=== PATIENT | female | born 1960 ===

== ENCOUNTER 2017-01-22 08:20 | Emergency (ER) | payer OTHER, MEDICAID ==
[2017-01-22 08:27] VITALS: BP 130/69; PULSE 79; RESP 16; TEMP 98.7; O2SAT 99
[2017-01-22 08:28] VITALS: BMI 37.6
--- NOTE | 2017-01-22 09:19 | ED PDOC ---
HPI: General Adult Time Seen by Provider: 01/22/17 09:10 Chief Complaint (Nursing): Medical Clearance History Per: Patient (states she was sent by Dr. Veronica just for CBC and BMP because there were abnormal platelet count and glucose level noted in the preop labs that were done recently. She is from [place] and is scheduled to have spine surgery here tomorrow morning. She denies any medical complaints. ) History/Exam Limitations: no limitations Past Medical History Reviewed: Historical Data, Nursing Documentation, Vital Signs Vital Signs: Last Vital Signs Temp 98.7 F 01/22/17 08:26 Pulse 79 01/22/17 08:26 Resp 16 01/22/17 08:26 BP 130/69 01/22/17 08:26 Pulse Ox 99 01/22/17 08:26 - Medical History PMH: Asthma, Diabetes, HTN Denies: Hypercholesterolemia, Hyperlipidemia, Chronic Kidney Disease - Surgical History Surgical History: Appendectomy (23 YRS AGO) Other surgeries: right ovarian cyst removal - Family History Family History: States: Unknown Family Hx - Living Arrangements Living Arrangements: With Family - Social History Ex-Smoker (has not smoked in the last 12 months): Yes Alcohol: Occasional Drugs: Denies - Allergies Allergies/Adverse Reactions: Allergies Allergy/AdvReac Type Severity Reaction Status Date / Time Penicillins AdvReac SWELLING Verified 01/22/17 08:32 Review of Systems ROS Statement: Except As Marked, All Systems Reviewed And Found Negative Physical Exam - Reviewed Nursing Documentation Reviewed: Yes Vital Signs Reviewed: Yes - Physical Exam Appears: Positive for: Well, Non-toxic, No Acute Distress Head Exam: Positive for: ATRAUMATIC, NORMAL INSPECTION, NORMOCEPHALIC Skin: Positive for: Normal Color Eye Exam: Positive for: Normal appearance, EOMI ENT: Positive for: Normal ENT Inspection Neck: Positive for: Supple Cardiovascular/Chest: Positive for: Regular Rate, Rhythm Respiratory: Negative for: Respiratory Distress Gastrointestinal/Abdominal: Negative for: Distended Back: Positive for: Normal Inspection Extremity: Positive for: Normal ROM Neurologic/Psych: Positive for: Alert, Oriented - ECG O2 Sat by Pulse Oximetry: 99 Disposition - Clinical Impression Clinical Impression: Diabetes, Hypertension - Patient ED Disposition Is Patient to be Admitted: No Doctor Will See Patient In The: Office Counseled Patient/Family Regarding: Diagnosis, Need For Followup - Disposition Disposition: Routine/Home Disposition Time: 09:21 Condition: STABLE Instructions: Diabetes Mellitus Type 2 in Adults (ED) - POA Present On Arrival: None
[2017-01-22 09:58] LABS: BASO % 0.2 % (0.0-2.0); EOS # 0.2 K/uL (0.0-0.7); EOS % 2.1 % (0.0-4.0); LYMPH # 2.2 K/uL (1.0-4.3); LYMPH % 30.6 % (20.0-40.0); MEAN CELL VOLUME 92.8 fl (81.0-99.0); MEAN CORPUSCULAR HEMOGLOBIN 31.6 pg (27.0-31.0); MEAN PLATELET VOLUME 9.7 fl (7.2-11.7); MONO # 0.7 K/uL (0.0-0.8); MONO % 9.9 % (0.0-10.0); NEUT # 4.2 K/uL (1.8-7.0); NEUT % 57.2 % (50.0-75.0); NRBC % 0.3 % (0.0-0.0); RED CELL DISTRIBUTION WIDTH 13.3 % (11.5-14.5); WHITE BLOOD COUNT 7.3 K/uL (4.8-10.8)
[2017-01-22 10:13] LABS: BLOOD UREA NITROGEN 12 mg/dl (7-17); CALCIUM 10.1 mg/dL (8.4-10.2); CARBON DIOXIDE 31 mmol/L (22-30); CHLORIDE 102 mmol/L (98-107); GFR AFRICAN-AMERICAN > 60; GLUCOSE,RANDOM 119 mg/dL (65-105); POTASSIUM 3.5 MMOL/L (3.6-5.0); SODIUM 142 mmol/l (132-148)
== END 2017-01-22 09:56 | disposition home or self-care (01) ==
LOC: H.ER 08:20
DX: E11.9 Type 2 diabetes mellitus without complications (principal); I10 Essential (primary) hypertension; J45.909 Unspecified asthma, uncomplicated; Z88.0 Allergy status to penicillin

== ENCOUNTER 2017-01-22 15:06 | Inpatient (IN) | payer MEDICAID, OTHER ==
[2017-01-22 15:07] VITALS: BMI 37.6
--- NOTE | 2017-01-22 15:35 | ED PDOC ---
HPI: General Adult Chief Complaint (Nursing): Medical Clearance History Per: Patient History/Exam Limitations: no limitations (sent back to the ER by DR. Veronica for admission for neck surgery tomorrow morning. Patient was here earlier stating she needed repeat blood test only. She states that her preop evaluation was done by her PMD in the outpatient already. Her surgery, which was scheduled for last week, had to be cancelled because of low platelets and elevated sugar. She was informed by Dr. Veronica's corporate secretary of this and was told to come to the hospital today so that her blood tests can be repeated prior to surgery tomorrow ) Past Medical History Reviewed: Historical Data, Nursing Documentation, Vital Signs Vital Signs: Last Vital Signs Temp 98.4 F 01/22/17 15:24 Pulse 78 01/22/17 15:24 Resp 20 01/22/17 15:24 BP 129/67 01/22/17 15:24 Pulse Ox 98 01/22/17 15:24 - Medical History PMH: Asthma, Diabetes, HTN Denies: Hypercholesterolemia, Hyperlipidemia, Chronic Kidney Disease - Surgical History Surgical History: Appendectomy (23 YRS AGO) - Family History Family History: States: Unknown Family Hx - Living Arrangements Living Arrangements: With Family - Allergies Allergies/Adverse Reactions: Allergies Allergy/AdvReac Type Severity Reaction Status Date / Time Penicillins AdvReac SWELLING Verified 01/22/17 08:32 Review of Systems ROS Statement: Except As Marked, All Systems Reviewed And Found Negative Constitutional: Negative for: Fever Physical Exam - Reviewed Nursing Documentation Reviewed: Yes Vital Signs Reviewed: Yes - Physical Exam Appears: Positive for: Well, Non-toxic, No Acute Distress Head Exam: Positive for: ATRAUMATIC, NORMAL INSPECTION, NORMOCEPHALIC Skin: Positive for: Normal Color, Warm, DRY Eye Exam: Positive for: EOMI, Normal appearance, PERRL ENT: Positive for: Normal ENT Inspection Neck: Positive for: Normal, Painless ROM Cardiovascular/Chest: Positive for: Regular Rate, Rhythm Respiratory: Positive for: CNT, Normal Breath Sounds Gastrointestinal/Abdominal: Positive for: Normal Exam, Bowel Sounds, Soft Back: Positive for: Normal Inspection Extremity: Positive for: Normal ROM Neurologic/Psych: Positive for: Alert, Oriented - ECG O2 Sat by Pulse Oximetry: 98 Disposition - Clinical Impression Clinical Impression: Cervical spine disease - Patient ED Disposition Is Patient to be Admitted: Yes Doctor Will See Patient In The: Hospital - Disposition Disposition: Transfer of Care Disposition Time: 15:39 Condition: STABLE - Pt Status Changed To: Hospital Disposition Of: Inpatient - Admit Certification Admit to Inpatient:: After my assessment, the patient will require hospitalization for at least two midnights. This is because of the severity of symptoms shown, intensity of services needed, and/or the medical risk in this patient being treated as an outpatient. - POA Present On Arrival: None
--- NOTE | 2017-01-22 17:42 | CP.PCM.HP ---
History of Present Illness - History of Present Illness History of Present Illness: Hospitalist Admission H&P (Patient was seen and examined at 5 PM 01/22/17 ER Bed #12) PMD: Dr. Sreekanth Garcia CODE STATUS: FULL CODE. She has a Living Will and a copy is with her Daughter Lacey Pina [phone] who is also her Health Care Proxy. 56 year old female who presents to [facility] ER as she was sent in by her Neurosurgeon Dr. Veronica for Platelet Transfusion. Dr. Veronica will be performing Anterior Cervical Dissection and Fusion on the morning of 01/23/17 and because of patient's long history of Thrombocytopenia, wanted to transfuse Platelets prior to her procedure. Currently upon FULL ROS there is NO chest pain, NO palpitations, NO SOB/Cough/ Wheezing, NO dysphagia/odynophagia, NO abdominal pain, NO n/v/d/c, NO burning/ pain with urination, NO lightheadedness/dizziness, NO headache, NO new changes in vision/eye pain/loss of vision, NO new changes in hearing/ear pain/tinnitus/ loss of hearing, NO edema, (+) Paresthesias involving the bilateral hands/ fingertips (chronic in nature secondary to the Chronic Cervical Neck Pain), (+) Chronic Low Back Pain with radiation of sharp pain to the Right Lower Anterior Leg/Foot PMHx: Asthma (last use of ProAir 01/21/17), DM 1, HTN, Thrombocytopenia (for the past 15 to 20 years; was followed by Medical Billing Clerk at [facility] and she was discharged from his service in July 2016 and asked to follow up only if platelets were significantly low), Chronic Cervical Neck Pain with Paresthesias (tingling) of B/L Hands/Fingertips, Chronic Low Back with radiation of sharp pain to the Right Lower Anterior Leg/Foot (being followed by Neurologist Dr. Juan Duffy at [facility]) PSHx: Appendectomy, Right Ovarian Cyst, Gastric Sleeve (October; performed by Dr. 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 [employer] , (+) Tobacco quit 1 year ago at which time she was smoking 1/2 pack a day for 20 years, NO alcohol, NO illicit drugs Family History: Brother and Dad (Thrombocytopenia) Present on Admission - Present on Admission Any Indicators Present on Admission: Yes History of DVT/PE: No History of Uncontrolled Diabetes: No Urinary Catheter: No Review of Systems - Review of Systems Review of Systems: Please see HPI Past Patient History - Past Medical History & Family History Past Medical History?: Yes Pertinent Family History: Please see HPI - Past Social History Smoking Status: Former Smoker - CARDIAC Hx Cardiac Disorders: Yes - PULMONARY Hx Asthma: Yes - NEUROLOGICAL Hx Neurological Disorder: Yes Other/Comment: NUMBNESS & TINGLING Both HANDS AND RIGHT SIDE LEG - HEENT Hx HEENT Problems: No - RENAL Hx Chronic Kidney Disease: No - ENDOCRINE/METABOLIC Hx Endocrine Disorders: Yes - HEMATOLOGICAL/ONCOLOGICAL Hx Blood Disorders: No - INTEGUMENTARY Hx Dermatological Problems: No - MUSCULOSKELETAL/RHEUMATOLOGICAL Hx Musculoskeletal Disorders: Yes Hx Back Pain: Yes (AND NECK PAIN) - GASTROINTESTINAL Hx Gastrointestinal Disorders: No - GENITOURINARY/GYNECOLOGICAL Hx Genitourinary Disorders: No - PSYCHIATRIC Hx Psychophysiologic Disorder: No Hx Substance Use: No - SURGICAL HISTORY Hx Appendectomy: Yes (23 YRS AGO) - ANESTHESIA Hx Anesthesia: Yes Hx Anesthesia Reactions: No Hx Malignant Hyperthermia: No Meds Allergies/Adverse Reactions: Allergies Allergy/AdvReac Type Severity Reaction Status Date / Time Penicillins AdvReac SWELLING Verified 01/22/17 08:32 Physical Exam - Constitutional Appears: Non-toxic, No Acute Distress - Head Exam Head Exam: ATRAUMATIC, NORMAL INSPECTION, NORMOCEPHALIC - Eye Exam Eye Exam: EOMI, Normal appearance, PERRL Pupil Exam: NORMAL ACCOMODATION, PERRL - ENT Exam ENT Exam: Mucous Membranes Moist, Normal Exam, Normal External Ear Exam, Normal Oropharynx - Neck Exam Neck exam: Positive for: Tenderness Additional comments: NO thyromegaly NO cervical/submandibular/supraclavicular lymphadenopathy - Respiratory Exam Respiratory Exam: Clear to Auscultation Bilateral, NORMAL BREATHING PATTERN Additional comments: NO R/R/W - Cardiovascular Exam Cardiovascular Exam: REGULAR RHYTHM, +S1, +S2 Additional comments: NO M/R/G - GI/Abdominal Exam GI & Abdominal Exam: Normal Bowel Sounds, Soft Additional comments: BSx4, Soft, Central Obesity, NO HSM, NO guarding/rebound tenderness, NT - Extremities Exam Additional comments: NON-pitting edema mild involving the lower bilateral legs Pulses are strong and equal Capillary Refill is 2 seconds There is scattered brown discoloration of the skin of the bilateral lower legs secondary chronic venous stasis (she states that she has a history of this) - Neurological Exam Neurological exam: Alert, CN II-XII Intact, Oriented x3 - Psychiatric Exam Psychiatric exam: Normal Affect, Normal Mood Results - Vital Signs Recent Vital Signs: Last Vital Signs Temp 98.4 F 01/22/17 16:41 Pulse 78 01/22/17 16:41 Resp 20 01/22/17 16:41 BP 129/67 01/22/17 16:41 Pulse Ox 98 01/22/17 15:44 Assessment & Plan (1) Cervical spine disease Assessment and Plan: Patient is for Anterior Cervical Dissections with Fusion by Neurosurgeon Dr. Veronica for morning of 01/23/17. Patient states that she had presurgical workup including blood work, EKG, and Chest X Ray through her PMD Dr. Esteban Garcia, whom she states has sent clearance to Dr. Veronica NPO after midnight tonight except for medications Status: Acute (2) Thrombocytopenia Assessment and Plan: Neurosurgeon Dr. Veronica has already ordered Platelet Transfusion Consent has been obtained for the Platelet Transfusion and form signed by myself , patient, and ER Nurse Moraima. This consent was given to Nurse Moraima. Please see PMHx for details concerning this issue. Status: Chronic (3) Hypertension Assessment and Plan: HCTZ 12.5 mg PO 1x/day (AM) with one dose at 6 PM as she did not take this morning Enalipril 20 mg PO 1x/day (PM) Status: Chronic (4) Diabetes mellitus type 1 Assessment and Plan: Humalog Lispro ISS Levemir 45 Units SQ in AM and PM (NO Lantus, which she is on at home, carried by our pharmacy) Accuchecks Status: Chronic (5) Asthma Assessment and Plan: Duoneb Q6H PRN SOB/Wheezing (She uses ProAir at home) Status: Chronic (6) Chronic pain Assessment and Plan: Nortriptyline 75 mg PO 1x/day (AM) and Cymbalta 60 mg PO 1x/day (AM) for the Chronic LBP with radiation to the Right Lower Leg Hold the Naprosyn PO 2x/day for which she is on for the Chronic Cervical Neck Pain Please see PHMx above for details concerning this issue Status: Chronic (7) Prophylactic measure Assessment and Plan: Liquid Diet for now and NPO after midnight NO anticoagulation considering the Thrombocytopenia therefore B/L SCDs for DVT Prophylaxis NO PPI and NO H2 blockers considering the Thrombocytopenia for GI Prophylaxis Status: Acute
[2017-01-22] MEDS ORDERED: Albuterol-Ipratrop 3 mg / 0.5 (3 ml) UD INH PRN (17:48)
[2017-01-22] MEDS ORDERED: Naproxen 500 MG TAB PO PRN (20:42)
[2017-01-22] MEDS: Insulin Detemir 100 Units/ml Inj SC SCH (22:06)
[2017-01-22] MEDS: Insulin Lispro (humaLOG) 100 Units/ml Inj SC SCH (22:13)
[2017-01-23] MEDS ORDERED: Propofol 10 mg/ml Inj (20 ML) ONE (07:04)
[2017-01-23] MEDS ORDERED: Succinylcholine 200 mg/10 ml Inj IV ONE (07:07)
[2017-01-23] MEDS ORDERED: Thrombin Topical 5,000 IU Spray Kit ONE (07:35)
[2017-01-23] MEDS ORDERED: Absorbable Gelatin Sponge Size 12-7 ONE (07:35)
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
[2017-01-23] MEDS: Insulin Lispro (humaLOG) 100 Units/ml Inj SC SCH ×4 (08:37→21:58)
[2017-01-23] MEDS ORDERED: Lactated Ringer's 1,000 ML IV ONE (08:45)
[2017-01-23] MEDS ORDERED: Rocuronium 10 mg/ml (5 ml) ONE (08:52)
[2017-01-23] MEDS ORDERED: Naproxen 500 MG TAB PO SCH (09:00)
--- NOTE | 2017-01-23 09:32 | CP.PCM.PN ---
Subjective - Date & Time of Evaluation Date of Evaluation: 01/23/17 Time of Evaluation: 11:00 - Subjective Subjective: Patient seen and evaluated . No acute issues overnight. Hemodynamically stable, afebrile. For ACDF today and NPO . Received 1 unit plt before surgery today. No signs of bleeding. Objective - Vital Signs/Intake and Output Vital Signs (last 24 hours): Temp Pulse Resp BP Pulse Ox 97.9 F 77 20 139/74 95 01/23/17 08:25 01/23/17 08:25 01/23/17 08:25 01/23/17 08:25 01/23/17 08:25 - Medications Medications: Current Medications Acetaminophen (Tylenol 325mg Tab) 650 mg PO Q6 PRN PRN Reason: Pain, Mild (1-3) Albuterol/Ipratropium (Duoneb 3 Mg/0.5 Mg (3 Ml) Ud) 3 ml INH RQ6 PRN PRN Reason: Shortness of Breath Duloxetine HCl (Cymbalta) 60 mg PO DAILY [facility] Last Admin: 01/23/17 08:37 Dose: Not Given Enalapril Maleate (Vasotec) 20 mg PO DAILY [facility] Hydrochlorothiazide (Microzide) 12.5 mg PO DAILY [facility] Last Admin: 01/22/17 22:18 Dose: 12.5 mg Insulin Detemir (Levemir) 45 units SC HS [facility] Last Admin: 01/22/17 22:06 Dose: 45 units Insulin Detemir (Levemir) 45 units SC DAILY [facility] Insulin Human Lispro (Humalog) 0 units SC [facility] Last Admin: 01/23/17 08:37 Dose: Not Given Naproxen (Naproxen) 500 mg PO BID PRN PRN Reason: Pain, moderate (4-7) Last Admin: 01/22/17 22:05 Dose: 500 mg Nortriptyline HCl (Pamelor) 75 mg PO DAILY [facility] - Constitutional Appears: Non-toxic, No Acute Distress - Head Exam Head Exam: ATRAUMATIC, NORMAL INSPECTION, NORMOCEPHALIC - Eye Exam Eye Exam: EOMI, Normal appearance, PERRL Pupil Exam: NORMAL ACCOMODATION, PERRL - ENT Exam ENT Exam: Mucous Membranes Moist, Normal Exam - Neck Exam Neck Exam: Normal Inspection - Respiratory Exam Respiratory Exam: Clear to Ausculation Bilateral, NORMAL BREATHING PATTERN. absent: Rales, Rhonchi, Wheezes - Cardiovascular Exam Cardiovascular Exam: REGULAR RHYTHM, RRR, +S1, +S2. absent: JVD - GI/Abdominal Exam GI & Abdominal Exam: Soft, Normal Bowel Sounds. absent: Distended, Guarding, Tenderness, Rebound - Rectal Exam Rectal Exam: Deferred - Extremities Exam Extremities Exam: Full ROM, Normal Capillary Refill, Normal Inspection. absent : Calf Tenderness, Pedal Edema - Neurological Exam Neurological Exam: Alert, Awake, CN II-XII Intact, Oriented x3 - Psychiatric Exam Psychiatric exam: Normal Affect, Normal Mood - Skin Skin Exam: Dry, Intact, Normal Color, Warm Assessment and Plan - Assessment and Plan (Free Text) Assessment: 56 y/o female with past medical history of obesity, diabetes mellitus type 1, asthma, hypertension, thrombocytopenia secondary to idiopathic thrombocytopenic purpura was admitted for Cervical disease and underwent anterior C4-C5 discectomy by Dr. Veronica today. Patient transferred to ICU for close monitoring Post op due to her thrombocytopenia and risk of bleeding. She was transfused 1 unit platelet preop and currently being transfused 1 more unit post op. 1. Cervical spine disease s/p anterior C4-C5 discectomy with fusion Monitor in ICU post op Receivecd 1 unit platelet preop and will receive 1 more unit post op Laurent drain in place Keep soft collar No anticoagulation due to her low Platelet count. SCD Incentive spirometry Clindamycin prophylactically x 3 doses Start PT in AM 2.Chronic Thrombocytopenia secondary to ITP No sign of bleeding platelet count 86 K Transfuse 2 unit platelet 1 preop and 1 post op Hold anticoagulation Repeat CBC in AM 3. Hypertension Controlled Continue home medications 4.Diabetes mellitus type 1 controlled On levemir and humalog Liquid diet post op . Restart diabetic diet / soft once able to swallow Accuchecks, insulin coverage 5. Asthma stable, chronic Duoneb Q6H PRN 6. Chronic pain syndrome to lower back continue Amytriptilin and Cymbalta Percoset PRN 7. DVt prophylaxis SCD
[2017-01-23] MEDS ORDERED: Neostigmine Methylsulfate 2 MG/2 ML ML IV ONE (09:33)
[2017-01-23] MEDS ORDERED: Neostigmine Methylsulfate 3mg/3ml Syringe IV ONE (09:33)
[2017-01-23] MEDS ORDERED: HEMOSTATIC MATRIX 10 ML DIS.NEEDLE TOP ONE (09:40)
[2017-01-23] MEDS ORDERED: Sodium Chloride 0.9% 1,000 ML IV ONE (10:04)
[2017-01-23] MEDS ORDERED: HYDROmorphone 0.5 mg/0.5 ml ISec IVP PRN (10:07)
[2017-01-23] MEDS ORDERED: Benzocaine/Menthol (Cepacol) Lozenge PO PRN (10:24)
[2017-01-23] MEDS ORDERED: Lactated Ringer's 1,000 ML IV SCH (10:30)
[2017-01-23] MEDS ORDERED: Oxycodone/Acetaminophen 5/325 mg Tab PO PRN (10:30)
[2017-01-23] MEDS ORDERED: HYDROmorphone 0.5 mg/0.5 ml ISec IVP ONE ×3 (10:51→11:10)
[2017-01-23] MEDS: Insulin Detemir 100 Units/ml Inj SC SCH ×2 (14:23→21:23)
--- NOTE | 2017-01-23 14:51 | CP.PCM.CON ---
History of Present Illness - History of Present Illness History of Present Illness: 56-year-old female with past medical history of obesity, diabetes mellitus type 1, asthma, hypertension, thrombocytopenia secondary to idiopathic thrombocytopenic purpura. Penicillin allergy. Patient underwent anterior cervical discectomy and fusion of C4-C5. Admitted to ICU for postoperative monitoring. 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 Alcohol: None Drugs: Denies Home Situation {Lives}: With Family Domestic Violence: Negative - CARDIAC Hx Cardiac Disorders: Yes - PULMONARY Hx Asthma: Yes - NEUROLOGICAL Hx Neurological Disorder: Yes Other/Comment: NUMBNESS & TINGLING Both HANDS AND RIGHT SIDE LEG - HEENT Hx HEENT Problems: No - RENAL Hx Chronic Kidney Disease: No - ENDOCRINE/METABOLIC Hx Endocrine Disorders: Yes - HEMATOLOGICAL/ONCOLOGICAL Hx Blood Disorders: No - INTEGUMENTARY Hx Dermatological Problems: No - MUSCULOSKELETAL/RHEUMATOLOGICAL Hx Falls: No - GASTROINTESTINAL Hx Gastrointestinal Disorders: No - GENITOURINARY/GYNECOLOGICAL Hx Genitourinary Disorders: No - PSYCHIATRIC Hx Substance Use: No - SURGICAL HISTORY Hx Appendectomy: Yes (23 YRS AGO) - ANESTHESIA Hx Anesthesia: Yes Hx Anesthesia Reactions: No Hx Malignant Hyperthermia: No Meds Allergies/Adverse Reactions: Allergies Allergy/AdvReac Type Severity Reaction Status Date / Time Penicillins AdvReac SWELLING Verified 01/22/17 08:32 - Medications Medications: Current Medications Acetaminophen (Tylenol 325mg Tab) 650 mg PO Q6 PRN PRN Reason: Pain, Mild (1-3) Albuterol/Ipratropium (Duoneb 3 Mg/0.5 Mg (3 Ml) Ud) 3 ml INH RQ6 PRN PRN Reason: Shortness of Breath Benzocaine/Menthol (Cepacol Sore Throat) 1 kerline PO Q3 PRN PRN Reason: Sore Throat Duloxetine HCl (Cymbalta) 60 mg PO DAILY [facility] Last Admin: 01/23/17 08:37 Dose: Not Given Enalapril Maleate (Vasotec) 20 mg PO DAILY [facility] Hydrochlorothiazide (Microzide) 12.5 mg PO DAILY [facility] Last Admin: 01/22/17 22:18 Dose: 12.5 mg Clindamycin Phosphate 600 mg/ (Sodium Chloride) 104 mls @ 104 mls/hr IVPB Q8 [facility] Lactated Ringer's (Lactated Ringer's) 1,000 mls @ 75 mls/hr IV .[id number] [facility] Stop: 01/24/17 12:00 Insulin Detemir (Levemir) 45 units SC HS [facility] Last Admin: 01/22/17 22:06 Dose: 45 units Insulin Detemir (Levemir) 45 units SC DAILY [facility] Last Admin: 01/23/17 14:23 Dose: Not Given Insulin Human Lispro (Humalog) 0 units SC ACHS [facility] Last Admin: 01/23/17 14:23 Dose: Not Given Morphine Sulfate (Morphine) 2 mg IVP Q4 PRN PRN Reason: Pain, severe (8-10) Naproxen (Naproxen) 500 mg PO BID PRN PRN Reason: Pain, moderate (4-7) Last Admin: 01/22/17 22:05 Dose: 500 mg Nortriptyline HCl (Pamelor) 75 mg PO DAILY [facility] Oxycodone/Acetaminophen (Percocet 5/325 Mg Tab) 1 tab PO Q4 PRN PRN Reason: Pain, moderate (4-7) Stop: 01/26/17 10:31 Physical Exam - Head Exam Head Exam: ATRAUMATIC, NORMAL INSPECTION, NORMOCEPHALIC - Eye Exam Eye Exam: EOMI, Normal appearance - ENT Exam ENT Exam: Mucous Membranes Dry - Respiratory Exam Respiratory Exam: Clear to Auscultation Bilateral, NORMAL BREATHING PATTERN - Cardiovascular Exam Cardiovascular Exam: REGULAR RHYTHM - GI/Abdominal Exam GI & Abdominal Exam: Normal Bowel Sounds, Soft. absent: Tenderness - Neurological Exam Neurological exam: Alert, CN II-XII Intact, Normal Gait, Oriented x3, Reflexes Normal - Psychiatric Exam Psychiatric exam: Normal Affect, Normal Mood Results - Vital Signs Recent Vital Signs: Last Vital Signs Temp 97.8 F 01/23/17 13:00 Pulse 76 01/23/17 13:00 Resp 16 01/23/17 13:00 BP 142/67 01/23/17 13:00 Pulse Ox 100 01/23/17 13:00 - Labs Labs: Laboratory Results - last 24 hr 01/22/17 01/22/17 01/22/17 17:20 18:28 18:29 POC Glucose (mg/dL) Blood Type Cancelled O POSITIVE Blood Type Confirm Cancelled O POSITIVE Antibody Screen Cancelled Negative BBK History Checked No verified bt 01/22/17 01/23/17 01/23/17 21:54 06:53 10:11 POC Glucose (mg/dL) 318 H 150 H 159 H Blood Type Blood Type Confirm Antibody Screen BBK History Checked Assessment & Plan (1) Cervical spine disease Assessment and Plan: 56-year-old female with past medical history of obesity, diabetes mellitus type 1, asthma, hypertension, thrombocytopenia secondary to idiopathic thrombocytopenic purpura. Penicillin allergy. Patient underwent anterior cervical discectomy and fusion of C4-C5. Admitted to ICU for postoperative monitoring. Neuro: Alert and oriented 3 Pulm: No acute issues, breathing spontaneously on 2 L nasal cannula oxygen CV: Hemodynamically stable, holding antihypertensive meds immediately postop, and restart in 24 hours. Hem: Thrombocytopenia, will monitor. Patient received 1 unit of platelets preoperatively and 1 unit of platelets postop. Renal: No acute issues, urine output within normal limits, will monitor. Endo: DM type I, Levemir 45 units daily at bedtime and 45 units every morning, short acting insulin sliding scale before every meal. GI: Liquid diet ID: No acute issues, empiric coverage post spinal surgery with clindamycin. DVT proph - Lovenox to be started 24 hours postop GI proph - not currently indicated Code status - full code Crtical Care Time spent 35 minutes The documented time is cumulative and includes review of patient data/exams/labs /chart review and examination of the patient on rounds and throughout the day; time is exclusive of any procedures or teaching time. Status: Acute
--- NOTE | 2017-01-23 14:56 | OP ---
PROCEDURE DATE: 01/23/2017 PREOPERATIVE DIAGNOSES: Cervical disk herniation at L4 and L5. POSTOPERATIVE DIAGNOSES: Cervical disk herniation at L4 and L5. PROCEDURE: Partial vertebrectomy of C4 and C5, diskectomy of C4-C5, interbody fusion of C4-C5 using PEEK and bone, plating and instrumentation from C4-C5 using an Amendia plate. Fluoroscopy has been used. SURGEON: Dr. Veronica HOSE TUBING BACKER: Rox Faustin, physician insurance claims assistant. She stayed throughout the case from the beginning to the end, helped me operate on this patient with diskectomy, vertebrectomy and fusions. The patient was brought to the operating room, administered with general endotracheal anesthesia, placed in a supine position. The head was placed on a donut. Care was taken to protect all the pressure points. Right side of the neck was thoroughly prepped in standard sterile manner after marking for skin incision for a cervical vertebrectomy. After prepping and draping the area, skin has been incised. Bleeding skin edges have been controlled by bipolar air saw operator. Using the Bovie air saw operator, platysma has been cut, dissection has been carried out at trachea and esophagus medially, sternomastoid carried out laterally, _bovie____ has been cauterized and cut. Identification of levels has been done with the help of fluoroscopy. Longus colli has been detached from attachment of vertebral bodies of C4, C5. Danek retractors have been applied. Rest of the operation carried out under microscope magnification and illumination. PARTIAL VERTEBRECTOMY OF C4 AND C5, DISKECTOMY OF C4-C5: By using a high-speed drill, vertebral bodies of C4, C5 have been drilled. Partial vertebrectomy has been conducted including removal of half of the vertebral body, cartilage, endplates. diskectomy has been performed using #11 blade, pituitary rongeurs, curettes. There was a herniated disk noted that has been removed. Posterior longitudinal ligament has been opened. Dura has been decompressed from side to side. INTERBODY FUSION OF C4-C5 USING PEEK AND BONE: A PEEK implant has been brought in, filled with the demineralized bone and bone dust that has been collected during the drilling process. It was gently tapped in the space created by the partial vertebrectomy of C4-C5. Position has been confirmed to be good. PLATING AND INSTRUMENTATION C4-C5 USING AN AMENDIA PLATE: An Amendia plate has been placed in vertebral bodies C4-C5. By using 12 mm screw, it has been secured under fluoroscopy guided control. Hemostasis best achieved. Ike drain placed in the wound, brought out through separate stab next to skin incision. Platysma closed with 3-0 Vicryl, skin has been closed with intradermal 3-0 Vicryl stitches. The patient tolerated the procedure. After procedure, mobilized to the recovery room in stable and awake condition. Jorge Veronica MD cc: [id number] TT: 01/23/2017 14:55:21 en MTDD
[2017-01-23] MEDS: Clindamycin 600 MG in Sodium Chloride 0.9% 100 ML IVPB SCH (17:48)
[2017-01-24] MEDS: Clindamycin 600 MG in Sodium Chloride 0.9% 100 ML IVPB SCH ×3 (01:00→16:10)
[2017-01-24 05:05] LABS: BASO % 0.3 % (0.0-2.0); EOS # 0.1 K/uL (0.0-0.7); HEMATOCRIT 41.1 % (34.0-47.0); LYMPH # 2.2 K/uL (1.0-4.3); LYMPH % 32.1 % (20.0-40.0); MEAN CELL VOLUME 93.1 fl (81.0-99.0); MEAN CORPUSCULAR HEMOGLOBIN 31.2 pg (27.0-31.0); MEAN CORPUSCULAR HGB CONC 33.5 g/dL (33.0-37.0); MEAN PLATELET VOLUME 9.3 fl (7.2-11.7); MONO # 0.7 K/uL (0.0-0.8); MONO % 10.4 % (0.0-10.0); NEUT # 3.8 K/uL (1.8-7.0); NEUT % 55.2 % (50.0-75.0); NRBC % 0.1 % (0.0-0.0); RED CELL DISTRIBUTION WIDTH 13.5 % (11.5-14.5); WHITE BLOOD COUNT 6.9 K/uL (4.8-10.8)
[2017-01-24 05:07] LABS: BLOOD UREA NITROGEN 10 mg/dl (7-17); CARBON DIOXIDE 30 mmol/L (22-30); CHLORIDE 102 mmol/L (98-107); GFR AFRICAN-AMERICAN > 60; GLUCOSE,RANDOM 153 mg/dL (65-105); POTASSIUM 3.8 MMOL/L (3.6-5.0); SODIUM 140 mmol/l (132-148)
[2017-01-24] MEDS: Insulin Lispro (humaLOG) 100 Units/ml Inj SC SCH ×4 (06:40→21:55)
[2017-01-24] MEDS: Insulin Detemir 100 Units/ml Inj SC SCH ×2 (08:46→21:57)
[2017-01-24] MEDS ORDERED: Enoxaparin 40 mg Syringe SC SCH (09:00)
[2017-01-24] MEDS ORDERED: Albuterol HFA 90 mcg/actuation (8 g) INH PRN (09:25)
--- NOTE | 2017-01-24 09:26 | CP.PCM.PN ---
Subjective - Date & Time of Evaluation Date of Evaluation: 01/24/17 Time of Evaluation: 09:00 - Subjective Subjective: No fever pain controlled no CP no SOB no abd pain no calf tenderness feels better no motor nor sensory deficit minimal drainage from DAVID drain Objective - Vital Signs/Intake and Output Vital Signs (last 24 hours): Temp Pulse Resp BP Pulse Ox 99.3 F 97 H 17 120/63 97 01/24/17 07:24 01/24/17 07:24 01/24/17 07:24 01/24/17 07:24 01/24/17 07:24 Intake and Output: 01/24/17 01/24/17 06:59 18:59 Intake Total 390 80 Output Total 800 150 Balance -410 -70 - Medications Medications: Current Medications Acetaminophen (Tylenol 325mg Tab) 650 mg PO Q6 PRN PRN Reason: Pain, Mild (1-3) Albuterol/Ipratropium (Duoneb 3 Mg/0.5 Mg (3 Ml) Ud) 3 ml INH RQ6 PRN PRN Reason: Shortness of Breath Benzocaine/Menthol (Cepacol Sore Throat) 1 kerline PO Q3 PRN PRN Reason: Sore Throat Cyclobenzaprine HCl (Flexeril) 5 mg PO TID PRN PRN Reason: Muscle spasm Duloxetine HCl (Cymbalta) 60 mg PO DAILY [facility] Last Admin: 01/24/17 08:45 Dose: 60 mg Enalapril Maleate (Vasotec) 20 mg PO DAILY [facility] Last Admin: 01/24/17 08:48 Dose: 20 mg Enoxaparin Sodium (Lovenox) 40 mg SC DAILY [facility] PRN Reason: Protocol Last Admin: 01/24/17 08:46 Dose: 40 mg Hydrochlorothiazide (Microzide) 12.5 mg PO DAILY [facility] Last Admin: 01/24/17 08:47 Dose: 12.5 mg Clindamycin Phosphate 600 mg/ (Sodium Chloride) 104 mls @ 104 mls/hr IVPB Q8 [facility] Last Admin: 01/24/17 08:44 Dose: 104 mls/hr Lactated Ringer's (Lactated Ringer's) 1,000 mls @ 75 mls/hr IV .[id number] [facility] Stop: 01/24/17 12:00 Insulin Detemir (Levemir) 45 units SC [facility] Last Admin: 01/23/17 21:23 Dose: 45 units Insulin Detemir (Levemir) 45 units SC DAILY [facility] Last Admin: 01/24/17 08:46 Dose: 45 units Insulin Human Lispro (Humalog) 0 units SC ACHS [facility] Last Admin: 01/24/17 06:40 Dose: 2 units Morphine Sulfate (Morphine) 2 mg IVP Q4 PRN PRN Reason: Pain, severe (8-10) Last Admin: 01/23/17 14:47 Dose: 2 mg Naproxen (Naproxen) 500 mg PO BID PRN PRN Reason: Pain, moderate (4-7) Last Admin: 01/22/17 22:05 Dose: 500 mg Nortriptyline HCl (Pamelor) 75 mg PO DAILY [facility] Last Admin: 01/24/17 08:47 Dose: 75 mg Oxycodone/Acetaminophen (Percocet 5/325 Mg Tab) 1 tab PO Q4 PRN PRN Reason: Pain, moderate (4-7) Stop: 01/26/17 10:31 - Labs Labs: 01/24/17 04:20 01/24/17 04:20 - Constitutional Appears: No Acute Distress - Head Exam Head Exam: NORMAL INSPECTION, NORMOCEPHALIC - Eye Exam Eye Exam: EOMI, Normal appearance, PERRL Pupil Exam: NORMAL ACCOMODATION - ENT Exam ENT Exam: Mucous Membranes Moist, Normal External Ear Exam - Neck Exam Additional comments: Anterior surgical wound with DAVID drain ( minimal serosanguinous drainage) - Respiratory Exam Respiratory Exam: NORMAL BREATHING PATTERN. absent: Respiratory Distress - Cardiovascular Exam Cardiovascular Exam: REGULAR RHYTHM, +S1, +S2 - GI/Abdominal Exam GI & Abdominal Exam: Soft, Normal Bowel Sounds. absent: Tenderness - Extremities Exam Extremities Exam: Full ROM, Normal Capillary Refill. absent: Calf Tenderness - Back Exam Back Exam: Full ROM. absent: CVA tenderness (L), CVA tenderness (R), paraspinal tenderness, vertebral tenderness - Neurological Exam Neurological Exam: Alert, Awake, CN II-XII Intact, Oriented x3 Neuro motor strength exam: Left Upper Extremity: 5, Right Upper Extremity: 5, Left Lower Extremity: 5, Right Lower Extremity: 5 - Psychiatric Exam Psychiatric exam: Normal Affect, Normal Mood - Skin Skin Exam: Dry, Normal Color, Warm Assessment and Plan - Assessment and Plan (Free Text) Assessment: 56 y/o female with past medical history of obesity, diabetes mellitus type 1, asthma, hypertension, thrombocytopenia secondary to idiopathic thrombocytopenic purpura was admitted for Cervical disease and underwent anterior C4-C5 discectomy by Dr. Veronica today. Patient transferred to ICU for close monitoring Post op due to her thrombocytopenia and risk of bleeding. She was transfused 1 unit platelet preop and 1 more unit post op. 1. Cervical spine disease s/p anterior C4-C5 discectomy with fusion Monitored in ICU post op- pt leslie well - will tranfer to Tele Receivecd 1 unit platelet preop and 1 more unit post op DAVID drain in place- will d/c in am Keep soft collar No anticoagulation due to her low Platelet count. SCD Incentive spirometry Clindamycin prophylactically x 3 doses Physical therapy 2.Chronic Thrombocytopenia secondary to ITP No sign of bleeding platelet count 87 K Transfused 2 unit platelet 1 preop and 1 post op Hold anticoagulation Repeat CBC in AM 3. Hypertension Controlled Continue home medications 4.Diabetes mellitus type 1 controlled On levemir and humalog Soft DM diet Accuchecks, insulin coverage 5. Asthma mild intermittent stable, chronic Duoneb Q6H PRN 6. Chronic pain syndrome to lower back continue Amitryptilin and Cymbalta Percocet PRN 7. DVt prophylaxis SCD No Lovenox due to low platelet
[2017-01-24] MEDS ORDERED: Insulin Lispro (humaLOG) 100 Units/ml Inj SC STA (11:01)
--- NOTE | 2017-01-24 11:25 | PN ---
DATE: 01/24/2017 LOCATION: The patient in ICU, bed 424. TIME SPENT: 35 minutes. The patient is seen and evaluated at the bedside. Events since admission reviewed. Status post day 1, status post anterior cervical diskectomy and fusion of C4-C5. The patient is a 56-year-old female with multiple medical problems including obesity, status post gas tric sleeve surgery, diabetes mellitus type 1, requiring insulin, hypertension, admitted with bilater al tingling of bilateral upper extremities involving hands. Uneventful operative procedure, transfus ed platelets before and after the surgery. ESTIMATED BLOOD LOSS: Minimal. This morning, alert, awake, out of bed to chair, complaining of mild tingling of right hand, improved pain on the left side of the neck. No tingling on the left hand. No headache, shortness of breath, chest pain, palpitation. No abdominal pain, diarrhea, dysuria. PHYSICAL EXAMINATION: VITAL SIGNS: Temperature 99.3, heart rate 97, regular, blood pressure 120/63, respiratory rate 17 th oracoabdominal, saturating 97% on room air. Intake 2390, output 980, positive 1410. Weight 206 poun ds. HEENT: Pupils reactive. Conjunctivae pink. Sclerae white. DAVID drain x 1 present with minimal drain age. LUNGS: Bilateral breath sounds, clear to auscultation. HEART: Rhythm regular. S1, S2 normal intensity. ABDOMEN: Bowel sounds present, soft. Liver and spleen are not palpable. Bladder not distended. EXTREMITIES: No clubbing, cyanosis. Mild paresthesia involving the right and left hands. Capillary refill less than 2 seconds. Peripheral pulses intact, symmetric. CURRENT MEDICATIONS: Tylenol 650 q. 6 p.r.n., albuterol 2 puffs q. 4 hours p.r.n. for shortness of b reath, Cepacol sore throat, 1 lozenge p.o. q. 3 p.r.n., clindamycin 600 mg q. 8 x 3 doses for preop p rophylaxis completed, Flexeril 5 mg p.o. 3 times daily p.r.n. for muscle spasm, Cymbalta 60 mg p.o. d aily, enalapril 20 mg p.o. daily, Lovenox 40 subQ daily, hydrochlorothiazide 12.5 mg p.o. daily, Leve mack 45 units subQ at bedtime, 45 units subQ in the morning, Ringer's lactate at 75 mL per hour, morph ine 2 mg IV q. 4 p.r.n. for pain, naproxen 500 p.o. b.i.d. p.r.n., Pamelor 75 mg p.o. daily, Percocet 5/325 mg 1 tablet q. 4 p.r.n. IMPRESSION AND PLAN: Postop day 1, status post fusion C4-C5 and diskectomy, postop with reduced numb ness. DAVID drain with minimal drainage. Closely monitor for total drainage. Continue analgesics as ne eded. Thrombocytopenia secondary to ITP, status post platelet transfusion before and after surgery. Platelet count remains stable at 87. Closely monitor for drop in hemoglobin and bleeding episode. Hypertension, controlled on current antihypertensive medications, on hydrochlorothiazide, Enalapril. Diabetes mellitus type 1. Closely monitor blood sugar, keep below 180. Continue Levemir. Chronic pain, on nortriptyline 75 mg p.o. daily, Cymbalta 60 mg p.o. once daily. Asthma, stable on DuoNeb. Advance diet as tolerated, as per surgery. Rory V Walt ST cc: [id number] TT: 01/24/2017 11:24:50 Confirmation # [id number] Dictation # [id number] vince
--- NOTE | 2017-01-24 11:30 | RAD ---
PROCEDURE: Intraoperative Fluoroscopy. HISTORY: ACDF FINDINGS: Fluoroscopic assistance was provided for ACDF Please refer to the 6.6s fluoroscopy time utilized. Total radiation dose = 0.89 mGy. Please refer to operative report for additional details.
[2017-01-25] MEDS: Clindamycin 600 MG in Sodium Chloride 0.9% 100 ML IVPB SCH ×3 (00:33→17:14)
[2017-01-25 05:34] LABS: HEMATOCRIT 41.3 % (34.0-47.0); MEAN CELL VOLUME 92.8 fl (81.0-99.0); MEAN CORPUSCULAR HGB CONC 33.4 g/dL (33.0-37.0); RED CELL DISTRIBUTION WIDTH 13.7 % (11.5-14.5); WHITE BLOOD COUNT 6.3 K/uL (4.8-10.8)
[2017-01-25] MEDS: Insulin Lispro (humaLOG) 100 Units/ml Inj SC SCH ×4 (07:24→23:03)
[2017-01-25] MEDS: Insulin Detemir 100 Units/ml Inj SC SCH ×2 (09:22→23:05)
--- NOTE | 2017-01-25 13:47 | CP.PCM.PN ---
Subjective - Date & Time of Evaluation Date of Evaluation: 01/25/17 Time of Evaluation: 12:30 - Subjective Subjective: Patient was seen and examined bedside. Feeling well, Complains of pain to anterior neck where the surgical incision is present. DAVID drain in place with 30 ml output this AM Hemodynamically stable, afebrile. No acute issues overnight. Objective - Vital Signs/Intake and Output Vital Signs (last 24 hours): Temp Pulse Resp BP Pulse Ox 98.1 F 80 15 126/72 93 L 01/25/17 12:00 01/25/17 12:00 01/25/17 12:00 01/25/17 12:00 01/25/17 12:00 Intake and Output: 01/25/17 01/25/17 06:59 18:59 Intake Total 400 100 Output Total 610 600 Balance -210 -500 - Medications Medications: Current Medications Acetaminophen (Tylenol 325mg Tab) 650 mg PO Q6 PRN PRN Reason: Pain, Mild (1-3) Last Admin: 01/24/17 20:20 Dose: 650 mg Albuterol (Ventolin Hfa 90 Mcg/Actuation (8 G)) 2 puff INH RQ4 PRN PRN Reason: Shortness of Breath Albuterol/Ipratropium (Duoneb 3 Mg/0.5 Mg (3 Ml) Ud) 3 ml INH RQ6 PRN PRN Reason: Shortness of Breath Benzocaine/Menthol (Cepacol Sore Throat) 1 kerline PO Q3 PRN PRN Reason: Sore Throat Cyclobenzaprine HCl (Flexeril) 5 mg PO TID PRN PRN Reason: Muscle spasm Duloxetine HCl (Cymbalta) 60 mg PO DAILY [facility] Last Admin: 01/25/17 09:21 Dose: 60 mg Enalapril Maleate (Vasotec) 20 mg PO DAILY [facility] Last Admin: 01/25/17 09:24 Dose: 20 mg Hydrochlorothiazide (Microzide) 12.5 mg PO DAILY [facility] Last Admin: 01/25/17 09:24 Dose: 12.5 mg Clindamycin Phosphate 600 mg/ (Sodium Chloride) 104 mls @ 104 mls/hr IVPB Q8 [facility] Last Admin: 01/25/17 09:20 Dose: 104 mls/hr Insulin Detemir (Levemir) 45 units SC DAILY [facility] Last Admin: 01/25/17 09:22 Dose: 45 units Insulin Detemir (Levemir) 50 units SC HS [facility] Last Admin: 01/24/17 21:57 Dose: 6 unit Insulin Human Lispro (Humalog) 0 units SC ACHS [facility] Last Admin: 01/25/17 12:24 Dose: 10 units Morphine Sulfate (Morphine) 2 mg IVP Q4 PRN PRN Reason: Pain, severe (8-10) Last Admin: 01/25/17 05:11 Dose: 2 mg Naproxen (Naproxen) 500 mg PO BID PRN PRN Reason: Pain, moderate (4-7) Last Admin: 01/22/17 22:05 Dose: 500 mg Nortriptyline HCl (Pamelor) 75 mg PO DAILY [facility] Last Admin: 01/25/17 12:27 Dose: 75 mg Oxycodone/Acetaminophen (Percocet 5/325 Mg Tab) 1 tab PO Q4 PRN PRN Reason: Pain, moderate (4-7) Stop: 01/26/17 10:31 - Labs Labs: 01/25/17 04:20 01/24/17 04:20 - Constitutional Appears: Non-toxic, No Acute Distress, Other (obese) - Head Exam Head Exam: ATRAUMATIC, NORMAL INSPECTION, NORMOCEPHALIC - Eye Exam Eye Exam: EOMI, PERRL Pupil Exam: NORMAL ACCOMODATION - ENT Exam ENT Exam: Mucous Membranes Moist, Normal Exam - Neck Exam Additional comments: right anterior neck dressings in place , intact DAVID drain in place with serosanguinous output - Respiratory Exam Respiratory Exam: Clear to Ausculation Bilateral, NORMAL BREATHING PATTERN. absent: Rales, Rhonchi, Wheezes - Cardiovascular Exam Cardiovascular Exam: REGULAR RHYTHM, RRR, +S1, +S2. absent: JVD - GI/Abdominal Exam GI & Abdominal Exam: Soft, Normal Bowel Sounds. absent: Distended, Guarding, Tenderness, Rebound - Rectal Exam Rectal Exam: Deferred - Extremities Exam Extremities Exam: Full ROM, Normal Capillary Refill, Normal Inspection. absent : Calf Tenderness, Pedal Edema - Back Exam Back Exam: NORMAL INSPECTION - Neurological Exam Neurological Exam: Alert, Awake, CN II-XII Intact, Oriented x3 - Psychiatric Exam Psychiatric exam: Normal Affect, Normal Mood - Skin Skin Exam: Dry, Normal Color, Warm Assessment and Plan - Assessment and Plan (Free Text) Assessment: 56 y/o female with past medical history of obesity, diabetes mellitus type 1, asthma, hypertension, thrombocytopenia secondary to idiopathic thrombocytopenic purpura was admitted for Cervical disease and underwent anterior C4-C5 discectomy by Dr. Veronica . Patient was transferred to ICU for close monitoring Post op due to her thrombocytopenia and risk of bleeding. She was transfused 1 unit platelet preop and 1 more unit post op.At present still with drainage from DAVID drain .Will transfer to [facility]/surg , continue ambulation anf keep DAVID drain in place for now. 1. Cervical spine disease s/p anterior C4-C5 discectomy with fusion Monitored in ICU post op due to high risk of bleeding Received 1 unit platelet preop and 1 more unit post op DAVID drain in place- with serosanguinous drainage. Will transfuse 1 more unit platelet today as per neurosurgery . Keep soft collar No anticoagulation due to her low Platelet count only SCD Incentive spirometry Clindamycin prophylactically x 3 doses given Continue Physical therapy Transfer to [facility]/surg 2.Chronic Thrombocytopenia secondary to ITP No sign of bleeding platelet count 83 K Transfused 1 unit platelet preop and 1 post op Will transfuse 1 more unit Plt today Hold anticoagulation 3. Hypertension Controlled Continue home medications , Enalapril and HCTZ 4.Diabetes mellitus type 1 controlled On levemir and humalog Soft DM diet Accuchecks, insulin coverage 5. Asthma mild intermittent stable, chronic Duoneb Q6H PRN 6. Chronic pain syndrome to lower back continue Amitryptilin and Cymbalta Percocet PRN 7. DVt prophylaxis SCD No Lovenox due to low platelet
[2017-01-25 22:19] VITALS: RESP 20
[2017-01-26] MEDS: Clindamycin 600 MG in Sodium Chloride 0.9% 100 ML IVPB SCH ×3 (01:00→09:51)
[2017-01-26 07:04] LABS: HEMATOCRIT 40.5 % (34.0-47.0); MEAN CELL VOLUME 93.7 fl (81.0-99.0); MEAN CORPUSCULAR HEMOGLOBIN 31.5 pg (27.0-31.0); MEAN CORPUSCULAR HGB CONC 33.6 g/dL (33.0-37.0); RED CELL DISTRIBUTION WIDTH 13.4 % (11.5-14.5); WHITE BLOOD COUNT 6.6 K/uL (4.8-10.8)
[2017-01-26] MEDS: Insulin Lispro (humaLOG) 100 Units/ml Inj SC SCH (07:23)
[2017-01-26 08:09] VITALS: BP 157/71; PULSE 75; TEMP 99; O2SAT 97
[2017-01-26] MEDS: Insulin Detemir 100 Units/ml Inj SC SCH (09:55)
--- NOTE | 2017-01-26 09:56 | CP.PCM.DIS ---
Provider - Provider Date of Admission: 01/22/17 15:45 Attending physician: Casey Xiao MD Consults: neurosurgery: Dr Veronica Time Spent in preparation of Discharge (in minutes): 35 Diagnosis - Discharge Diagnosis (1) Cervical spine disease Status: Chronic (2) S/P cervical discectomy Status: Acute (3) Chronic ITP (idiopathic thrombocytopenic purpura) Status: Chronic (4) Asthma Status: Chronic (5) Diabetes mellitus type 1 Status: Chronic (6) Hypertension Status: Chronic (7) Prophylactic measure Status: Acute Hospital Course - Lab Results Lab Results: Micro Results 01/23/17 13:30 Naris MRSA Culture (Admit) - Final MRSA DETECTED Most Recent Lab Values WBC 6.6 K/uL (4.8-10.8) 01/26/17 05:55 RBC 4.32 Mil/uL (3.80-5.20) 01/26/17 05:55 Hgb 13.6 g/dL (12.0-16.0) 01/26/17 05:55 Hct 40.5 % (34.0-47.0) 01/26/17 05:55 MCV 93.7 fl (81.0-99.0) 01/26/17 05:55 MCH 31.5 pg (27.0-31.0) H 01/26/17 05:55 MCHC 33.6 g/dL (33.0-37.0) 01/26/17 05:55 RDW 13.4 % (11.5-14.5) 01/26/17 05:55 Plt Count 89 K/uL (130-400) L 01/26/17 05:55 MPV 9.3 fl (7.2-11.7) 01/24/17 04:20 Neut % (Auto) 55.2 % (50.0-75.0) 01/24/17 04:20 Lymph % (Auto) 32.1 % (20.0-40.0) 01/24/17 04:20 [place] % (Auto) 10.4 % (0.0-10.0) H 01/24/17 04:20 Eos % (Auto) 2.0 % (0.0-4.0) 01/24/17 04:20 Baso % (Auto) 0.3 % (0.0-2.0) 01/24/17 04:20 Neut # 3.8 K/uL (1.8-7.0) 01/24/17 04:20 Lymph # 2.2 K/uL (1.0-4.3) 01/24/17 04:20 [place] # 0.7 K/uL (0.0-0.8) 01/24/17 04:20 Eos # 0.1 K/uL (0.0-0.7) 01/24/17 04:20 Baso # 0.0 K/uL (0.0-0.2) 01/24/17 04:20 Sodium 140 mmol/l (132-148) 01/24/17 04:20 Potassium 3.8 MMOL/L (3.6-5.0) 01/24/17 04:20 Chloride 102 mmol/L (98-107) 01/24/17 04:20 Carbon Dioxide 30 mmol/L (22-30) 01/24/17 04:20 Anion Gap 12 (10-20) 01/24/17 04:20 BUN 10 mg/dl (7-17) 01/24/17 04:20 Creatinine 0.6 mg/dL (0.7-1.2) L 01/24/17 04:20 Est GFR ( Amer) > 60 01/24/17 04:20 Est GFR (Non-Af Amer) > 60 01/24/17 04:20 POC Glucose (mg/dL) 190 mg/dL (65-110) H 01/25/17 21:55 Random Glucose 153 mg/dL (65-105) H 01/24/17 04:20 Calcium 9.0 mg/dL (8.4-10.2) 01/24/17 04:20 Blood Type O POSITIVE 01/22/17 18:28 Blood Type Confirm O POSITIVE 01/22/17 18:29 Antibody Screen Negative 01/22/17 18:28 BBK History Checked No verified bt 01/22/17 18:28 - Hospital Course Hospital Course: 56 y/o female with past medical history of obesity, diabetes mellitus type 1, asthma, hypertension, thrombocytopenia secondary to idiopathic thrombocytopenic purpura was admitted for Cervical disease and underwent anterior C4-C5 discectomy by Dr. Veronica . Patient was transferred to ICU for close monitoring Post op due to her thrombocytopenia and risk of bleeding. She was transfused 1 unit platelet preop and 1 more unit post op. At present , patient is doing well ,amulatory. DAVID drainage very minimal and DAVID drain was pulled out. 1. Cervical spine disease s/p anterior C4-C5 discectomy with fusion Monitored in ICU post op due to high risk of bleeding Received 1 unit platelet preop and 1 more unit post op soft collar No anticoagulation due to her low Platelet count only SCD Incentive spirometry Clindamycin prophylactically x 3 doses given Continue Physical therapy DAVID drain d/c - very minimal drainage 2.Chronic Thrombocytopenia secondary to ITP No sign of bleeding platelet count 83 K Transfused 1 unit platelet preop and 2 post op Hold anticoagulation 3. Hypertension Controlled Continue home medications , Enalapril and HCTZ 4.Diabetes mellitus type 1 controlled On levemir and humalog Soft DM diet Accuchecks, insulin coverage 5. Asthma mild intermittent stable, chronic Duoneb Q6H PRN 6. Chronic pain syndrome to lower back continue Amitryptilin and Cymbalta Percocet PRN 7. DVt prophylaxis SCD No Lovenox due to low platelet Discharge Exam - Head Exam Head Exam: ATRAUMATIC, NORMAL INSPECTION, NORMOCEPHALIC - Eye Exam Eye Exam: EOMI, Normal appearance, PERRL Pupil Exam: NORMAL ACCOMODATION - ENT Exam ENT Exam: Mucous Membranes Moist, Normal External Ear Exam - Neck Exam Neck exam: Full Rom Additional comments: ant neck surgical wound with dressing intact - Respiratory Exam Respiratory Exam: NORMAL BREATHING PATTERN. absent: Respiratory Distress - Cardiovascular Exam Cardiovascular Exam: REGULAR RHYTHM, +S1, +S2 - GI/Abdominal Exam GI & Abdominal Exam: Normal Bowel Sounds, Soft. absent: Tenderness - Extremities Exam Extremities exam: normal capillary refill, pedal pulses present Additional comments: no calf tenderness - Back Exam Back exam: FULL ROM. absent: CVA tenderness (L), CVA tenderness (R), paraspinal tenderness, vertebral tenderness - Neurological Exam Neurological exam: Alert, CN II-XII Intact, Oriented x3, Reflexes Normal - Psychiatric Exam Psychiatric exam: Normal Affect, Normal Mood - Skin Skin Exam: Dry, Normal Color, Warm Discharge Plan - Discharge Medications Prescriptions: Cyclobenzaprine [Flexeril] 5 mg PO TID PRN #20 tab PRN Reason: Muscle Spasm traMADol [Ultram] 50 mg PO TID PRN #20 tab PRN Reason: Pain, Moderate (4-7) - Follow Up Plan Condition: GOOD Disposition: HOME/ ROUTINE Instructions: Hypertension (DC) Additional Instructions: ff up with PMD raymond appt with DR Veronica in 1 wk ff up with Sales Advisor raymond cont TIW Physical therapy - outpt Referrals: Jorge Veronica MD [Staff Provider] -
== END 2017-01-26 14:06 | disposition home or self-care (01) | DRG 864 ==
LOC: H.ER 15:06 → H.ERHOLD 15:45 → H.MEDSURG1 17:43 → H.ICU/CCU 01-23 12:30 → H.MEDSURG1 01-25 22:18
PROVIDERS: ADMIT Family Medicine; ATTEND Family Medicine
PROC: 0RG20A1 (ICD-10-PCS; 2017-01-23)
PROC: 30233R1 Transfusion of Nonautologous Platelets into Peripheral Vein, Percutaneous Approach (ICD-10-PCS; 2017-01-23)
PROC: 0RB30ZZ Excision of Cervical Vertebral Disc, Open Approach (ICD-10-PCS; principal; 2017-01-23 08:45)
DX: M50.021 Cervical disc disorder at C4-C5 level with myelopathy (principal); M47.12 Other spondylosis with myelopathy, cervical region; D69.3 Immune thrombocytopenic purpura; J45.20 Mild intermittent asthma, uncomplicated; E10.9 Type 1 diabetes mellitus without complications; G89.4 Chronic pain syndrome; E66.9 Obesity, unspecified; Z68.37 Body mass index [BMI] 37.0-37.9, adult; I10 Essential (primary) hypertension; Z88.0 Allergy status to penicillin; Z79.4 Long term (current) use of insulin; Z87.891 Personal history of nicotine dependence; Z98.84 Bariatric surgery status